=== PATIENT | female | born 1975 | race Hispanic/Latino ===

== ENCOUNTER → 2017-09-09 | Outpatient (CLI) | payer BC | LOC: MAMMO 10:51 | PROVIDERS: ATTEND Obstetrics & Gynecology | DX: Z12.31 Encounter for screening mammogram for malignant neoplasm of breast (principal) | CPT/HCPCS: G0202 ==

== ENCOUNTER → 2018-05-26 | Outpatient (CLI) | payer BC ==
--- NOTE | 2018-05-26 14:16 | Diagnostic Imaging Report ---
EXAMINATION: Transabdominal pelvic ultrasound. CLINICAL INDICATION: Abnormal uterine bleeding COMPARISON: None DISCUSSION: Transverse and sagittal transabdominal images were obtained of the pelvis using the urinary bladder as a sonographic window. The uterus is neutral in position and normal in size measuring 9 x 4.4 x 6.2 cm. The endometrial stripe is homogeneous, normal in thickness and measures 1.3 centimeters. There is an ovoid hypoechoic structure in the upper cervix with questionable posterior acoustic enhancement measuring 1.3 x 0.9 x 1.2 cm. The ovaries are normal in size and echogenicity. The right ovary measures 2.3 x 2 x 3.3 centimeters. The left ovary measures 2.7 x 2 x 2.4 centimeters. No free fluid or pelvic masses are seen. IMPRESSION: Hypoechoic lesion in the upper cervix may represent a nabothian cyst, though a cervical fibroid may have a similar appearance, particularly in the setting of abnormal uterine bleeding. Transvaginal sonography or pelvic MRI would be of benefit for further characterization. Otherwise unremarkable transabdominal pelvic ultrasound. Signed by: Dr. Talta Gann M.D. on 05/26/2018 2:12 PM
== END ==
LOC: US 10:30
PROVIDERS: ATTEND Obstetrics & Gynecology
DX: N93.9 Abnormal uterine and vaginal bleeding, unspecified (principal)
CPT/HCPCS: 76856

== ENCOUNTER → 2019-10-06 | Outpatient (CLI) | payer SELFPAY | LOC: MAMMO 08:48 | PROVIDERS: ATTEND Obstetrics & Gynecology | DX: Z12.31 Encounter for screening mammogram for malignant neoplasm of breast (principal) | CPT/HCPCS: 77067 ==